=== PATIENT | female | born 1950 | race Caucasian/White ===

== ENCOUNTER → 2016-09-07 | Outpatient (CLI) | payer BC, MEDICARE ==
--- NOTE | 2016-09-11 11:31 | MM ---
Reason for exam: screening (asymptomatic). Last mammogram was performed 1 year and 3 months ago. History: Patient is postmenopausal. Benign stereotactic core biopsy of the right breast, December 27, 1998. Core biopsy of the right breast, 1997. Excisional biopsy of the right breast, 1995. Physical Findings: A clinical breast exam by your physician is recommended on an annual basis and results should be correlated with mammographic findings. MG Screening Mammo w CAD Bilateral CC and MLO view(s) were taken. Prior study comparison: May 31, 2015, bilateral MG screening mammo w CAD. March 22, 2014, bilateral MG screening mammo w CAD. No significant changes when compared with prior studies. ASSESSMENT: Negative, BI-RAD 1 RECOMMENDATION: Routine screening mammogram of both breasts in 1 year.
== END | disposition home or self-care (01) ==
LOC: RADMAMWWP 07:27
PROVIDERS: ATTEND Obstetrics & Gynecology
DX: Z12.31 Encounter for screening mammogram for malignant neoplasm of breast (principal)

== ENCOUNTER → 2016-09-24 | Outpatient (CLI) | payer BC, MEDICARE ==
--- NOTE | 2016-09-24 10:53 | BD ---
EXAMINATION TYPE: MG DEXA axial skeleton. DATE OF EXAM: 09/24/2016 COMPARISON: 2014 CLINICAL HISTORY: osteoporosis Height: 5'8 Weight: 177 FRAX RISK QUESTIONS: Alcohol (3 or more units per day): no Family History (Parent hip fracture): no Glucocorticoids (More than 3mos): no (Ex: prednisone, prednisolone, methylprednisolone, dexamethasone, and hydrocortisone). History of Fracture in Adulthood: yes Secondary Osteoporosis: 1. Type 1 Diabetes: no 2. Hyperthyroidism: no 3. Menopause before 45: no 4. Malnutrition: no 5. Chronic liver disease: no Rheumatoid Arthritis: no Current Tobacco Use: no RISK FACTORS HISTORY OF: Postmenopausal woman: MEDICATIONS: Additional Medications: Additional History: osteoporosis EXAM MEASUREMENTS: Bone mineral densitometry was performed using the [employer]. Bone mineral density as measured about the Lumbar spine is: ----- L1-L4(G/cm2): 0.704 T Score Values are as follows: ----- L2: -5.1 ----- L3: -4.2 ----- L4: -2.8 ----- L1-L4:-4.0 Bone mineral density has: Decreased -10.7% since study of: 03/22/2014 Bone mineral density about the R hip (g/cm2): 0.826 Bone mineral density about the L hip (g/cm2): 0.810 T Score values are as follows: -----R Neck: -1.5 -----L Neck: -1.6 -----R Total: -0.8 -----L Total: -1.1 Bone mineral density has: Decreased -0.7% since study of: 03/22/2014 IMPRESSION: Osteoporosis (T Score less than -2.5) as noted by T Score values at the:L1-L4 There is increased fracture risk and therapy is usually indicated based on age. Re-Screen 1-2 years. NOTE: T-SCORE=SD OF THE YOUNG ADULT MEAN.
== END | disposition home or self-care (01) ==
LOC: RADBDWWP 07:00
PROVIDERS: ATTEND Obstetrics & Gynecology
DX: M81.0 Age-related osteoporosis without current pathological fracture (principal)
CPT/HCPCS: 77080

== ENCOUNTER → 2017-09-24 | Outpatient (CLI) | payer BC, MEDICARE ==
--- NOTE | 2017-09-30 13:48 | MM ---
Reason for exam: screening (asymptomatic). Last mammogram was performed 1 year and 1 month ago. History: Patient is postmenopausal. Benign stereotactic core biopsy of the right breast, December 27, 1998. Core biopsy of the right breast, 1997. Excisional biopsy of the right breast, 1995. Physical Findings: A clinical breast exam by your physician is recommended on an annual basis and results should be correlated with mammographic findings. MG Screening Mammo w CAD Bilateral CC and MLO view(s) were taken. Prior study comparison: September 07, 2016, bilateral MG screening mammo w CAD. May 31, 2015, bilateral MG screening mammo w CAD. There are scattered fibroglandular densities. Previous mammotome biopsy in the right breast. No significant changes when compared with prior studies. ASSESSMENT: Benign, BI-RAD 2 RECOMMENDATION: Routine screening mammogram of both breasts in 1 year.
== END | disposition home or self-care (01) ==
LOC: RADMAMWWP 06:53
PROVIDERS: ATTEND Obstetrics & Gynecology
DX: Z12.31 Encounter for screening mammogram for malignant neoplasm of breast (principal)
CPT/HCPCS: 77067

== ENCOUNTER 2018-06-05 18:58 | Emergency (ER) | payer BC, MEDICARE ==
[2018-06-05 19:15] VITALS: TEMP 97.4
[2018-06-05] MEDS ORDERED: KETOROLAC 60 MG/2 ML VIAL IM STA (20:05)
--- NOTE | 2018-06-05 21:08 | CT ---
EXAMINATION TYPE: CT abdomen pelvis wo con DATE OF EXAM: 06/05/2018 COMPARISON: None HISTORY: Pt c/o pain in Lt groin area. Pt lifted heavy bag of stone today and felt pain upon twisting CT DLP: 531.7 mGycm Automated exposure control for dose reduction was used. TECHNIQUE: Helical acquisition of images was performed from the lung bases through the pelvis. FINDINGS: There is minimal subsegmental atelectasis or scarring at the left lung base. There is no pleural effu franny. Heart size is normal. There is no pericardial effusion. There are numerous rounded fluid densit ies in the liver consistent with multiple cysts that measure up to 1.4 cm. The bile ducts are not dil ated. There are clips from cholecystectomy. Stomach appears normal. Spleen appears normal. There is n o pancreatic mass. There is no adrenal mass. Kidneys have normal size and contour. There is no hydronephrosis. Ureters a re not dilated. There is no retroperitoneal adenopathy. Bladder distends smoothly. There is no free f luid in the pelvis. There is no inguinal hernia. I see no intestinal wall thickening. Appendix appear s normal. There is no mesenteric edema. There are scattered sigmoid diverticula without evidence of d iverticulitis. There is no free air. There is no ascites. Lumbar spine is intact. There is no tracy franny fracture. There is mild lumbar levoscoliosis. Bony pelvis is intact. IMPRESSION: THERE IS MILD SIGMOID DIVERTICULOSIS WITHOUT DIVERTICULITIS. NORMAL APPENDIX. MULTIPLE LOW-DENSITY LI KAREL LESIONS ARE PROBABLY CYSTS AND SHOULD BE CONFIRMED BY ULTRASOUND IF CLINICALLY INDICATED. I DO NO T SEE A CAUSE FOR LEFT GROIN PAIN.
--- NOTE | 2018-06-05 21:44 | ED ---
General Adult HPI - General Chief complaint: Extremity Injury, Lower Stated complaint: Groin pain Time Seen by Provider: 06/05/18 19:21 Source: patient, RN notes reviewed, old records reviewed Mode of arrival: ambulatory Limitations: no limitations - History of Present Illness Initial comments: 68-year-old female patient presents to ED with possible abdominal muscle strain. Patient reports that she was working in the yard when she picked up a bag of rocks and twisted. At that time patient reports that she felt a pull in her left oblique muscle. Patient denies any fall. Patient denies any other complaints. Patient denies any nausea vomiting diarrhea, chest pain. Systemic: Pt denies fatigue, myalgia, fever/chills, rash. Pt denies weakness, night sweats, weight loss. Neuro: Pt denies headache, visual disturbances, syncope or pre-syncope. HEENT: Pt denies ocular discharge or irritation, otalgia, rhinorrhea, pharyngitis or notable lymphadenopathy. Cardiopulmonary: Pt denies chest pain, SOB, heart palpitations, dyspnea on exertion. Abdominal/GI: Pt denies abdominal pain, n/v/d. : Pt denies dysuria, burning w/ urination, frequency/urgency. Denies new onset urinary or bowel incontinence. MSK: Pt denies myalgia, loss of strength or function in extremities. Neuro: Pt denies new onset weakness, paresthesias. - Related Data Home Medications Medication Instructions Recorded Confirmed Multivit-Min/Iron/Folic/Lutein 1 tab PO DAILY 11/07/15 06/05/18 [Centrum Silver Women Tablet] Allergies Allergy/AdvReac Type Severity Reaction Status Date / Time acetaminophen AdvReac Rash/Hives Verified 06/05/18 19:40 [From Darvocet-N 100] propoxyphene napsylate AdvReac Rash/Hives Verified 06/05/18 19:40 [From Darvocet-N 100] Review of Systems ROS Statement: Those systems with pertinent positive or pertinent negative responses have been documented in the HPI. ROS Other: All systems not noted in ROS Statement are negative. Past Medical History Past Medical History: No Reported History History of Any Multi-Drug Resistant Organisms: None Reported Past Surgical History: Cholecystectomy Past Psychological History: No Psychological Hx Reported Smoking Status: Never smoker Past Alcohol Use History: None Reported Past Drug Use History: None Reported General Exam - General Exam Comments Initial Comments: Constitutional: NAD, AOX3, Pt has pleasant affect. HEENT: NC/AT, trachea midline, neck supple, no lymphadenopathy. Posterior pharynx non erythematous, without exudates. External ears appear normal, without discharge. Mucous membranes moist. Eyes PERRLA, EOM intact. There is no scleral icterus. No pallor noted. Cardiopulmonary: RRR, no murmurs, rubs or gallops, no JVD noted. Lungs CTAB in anterior and posterior coleman. No peripheral edema. Abdominal exam: Abdomen soft and non-distended. Abdomen non-tender to palpation in all 4 quadrants. Bowel sounds active in LLQ. No hepatosplenomegaly. No ecchymosis Neuro: CN II-XII grossly intact. No nuchal rigidity. MSK: Left oblique mildly tender to palpation. No defect of abdominal wall. No hernia. No ecchymoses. No posterior calf tenderness bilaterally, homans sign negative bilaterally. Posterior tibialis and radial pulse +2 bilaterally. Sensation intact in upper and lower extremities. Full active ROM in upper and lower extremities, 5/5 stregnth. Limitations: no limitations Course Vital Signs 06/05/18 19:11 Temperature 97.4 F L Pulse Rate 63 Respiratory 18 Rate Blood Pressure 150/82 O2 Sat by Pulse 97 Oximetry Medical Decision Making - Medical Decision Making 68-year-old female patient presents to ED with possible abdominal muscle strain. Patient reports that she was working in the yard when she picked up a bag of rocks and twisted. At that time patient reports that she felt a pull in her left oblique muscle. Patient denies any fall. Patient denies any other complaints. Patient denies any nausea vomiting diarrhea, chest pain. Pt VSS, afebrile. Physical exam displayed: Left oblique mildly tender to palpation. No defect of abdominal wall. No hernia. No ecchymoses. CT abdomen and pelvis without contrast displayed diverticulosis without diverticulitis. Normal appendix. Liver cysts. These appears enough findings to patient. Patient pain resolved with administration of Toradol. Patient discharged. Patient will follow-up with primary care provider. Patient was additionally given orthopedic consult symptoms persist. Patient will use [id number] nonsteroidal anti- inflammatories or Tylenol as needed for pain. Case discussed with Dr. Schwarz. Disposition Clinical Impression: Abdominal muscle strain Disposition: HOME SELF-CARE Condition: Stable Instructions (If sedation given, give patient instructions): Muscle Strain (ED) Additional Instructions: Patient to adhere to previously discussed treatment plan and will take medication(s) as directed. Patient to follow up with PCP in 1-2 days. Patient to return to ED if symptoms do not improve. Follow-up with primary care provider in 1-2 days. Use Tylenol or Motrin as needed for pain. Follow up with orthopedic surgeon if symptoms persist. Return to ER if condition worsens. Is patient prescribed a controlled substance at d/c from ED?: No Referrals: Edith Stoddard MD [Primary Care Provider] - 1-2 days
[2018-06-05 22:06] VITALS: BP 120/92; PULSE 66; RESP 16
== END 2018-06-05 22:06 | disposition home or self-care (01) ==
LOC: EC 18:58
DX: S39.011A Strain of muscle, fascia and tendon of abdomen, initial encounter (principal); Z90.49 Acquired absence of other specified parts of digestive tract; Z88.6 Allergy status to analgesic agent; Z88.5 Allergy status to narcotic agent; X50.1XXA Overexertion from prolonged static or awkward postures, initial encounter; Y92.096 Garden or yard of other non-institutional residence as the place of occurrence of the external cause; Y93.89 Activity, other specified
CPT/HCPCS: 99284; 96372; 74176; J1885

== ENCOUNTER → 2018-10-10 | Outpatient (CLI) | payer BC, MEDICARE ==
--- NOTE | 2018-10-14 14:49 | MM ---
Reason for exam: screening (asymptomatic). Last mammogram was performed 1 year and 1 month ago. History: Patient is postmenopausal. Benign stereotactic core biopsy of the right breast, December 27, 1998. Core biopsy of the right breast, 1997. Excisional biopsy of the right breast, 1995. Physical Findings: A clinical breast exam by your physician is recommended on an annual basis and results should be correlated with mammographic findings. MG Screening Mammo w CAD Bilateral CC and MLO view(s) were taken. Prior study comparison: September 24, 2017, bilateral MG screening mammo w CAD. September 07, 2016, bilateral MG screening mammo w CAD. There are scattered fibroglandular densities. No suspicious abnormality. Right biopsy marker. No significant changes when compared with prior studies. ASSESSMENT: Negative, BI-RAD 1 RECOMMENDATION: Routine screening mammogram of both breasts in 1 year.
== END | disposition home or self-care (01) ==
LOC: RADMAMWWP 06:54
PROVIDERS: ATTEND Obstetrics & Gynecology
DX: Z12.31 Encounter for screening mammogram for malignant neoplasm of breast (principal)
CPT/HCPCS: 77067

== ENCOUNTER → 2020-02-08 | Outpatient (CLI) | payer MEDICARE ==
--- NOTE | 2020-02-08 09:02 | BD ---
EXAMINATION TYPE: Axial Bone Density DATE OF EXAM: 02/08/2020 COMPARISON: DEXA September 24, 2016 CLINICAL HISTORY: Bone disorder. Postmenopausal female. Height: 5 FT 7 1/2 IN Weight: 187 FRAX RISK QUESTIONS: Alcohol (3 or more units per day): NO Family History (Parent hip fracture): NO Glucocorticoids (More than 3mos): NO (Ex: prednisone, prednisolone, methylprednisolone, dexamethasone, and hydrocortisone). History of Fracture in Adulthood: YES Secondary Osteoporosis: 1. Type 1 Diabetes: NO 2. Hyperthyroidism: NO 3. Menopause before 45: NO 4. Malnutrition: NO 5. Chronic liver disease: NO Rheumatoid Arthritis: NO Current Tobacco Use: NO RISK FACTORS HISTORY OF: Family History of Osteoporosis: NO Active: YES Diet low in dairy products/other sources of calcium: NO Postmenopausal woman: AGE 51 Take estrogen and/or progesterone medications: NONE Lost more than 2 inches in height since high school: YES MEDICATIONS: Additional Medications: NONE Additional History: EXAM MEASUREMENTS: Bone mineral densitometry was performed using the [employer]. Bone mineral density as measured about the Lumbar spine is: ----- L1-L4(G/cm2): 0.761 T Score Values are as follows: ----- L2: -4.6 ----- L3: -3.7 ----- L4: -2.3 ----- L1-L4: -3.5 Bone mineral density has: INCREASED 8.6 % since study of: 2016 Bone mineral density about the R hip (g/cm2): 0.828 Bone mineral density about the L hip (g/cm2): 0.735 T Score values are as follows: -----R Neck: -1.5 -----L Neck: -2.2 -----R Total: -1.1 -----L Total: -1.5 Bone mineral density has: DECREASED -4.7 % since study of: 2016 IMPRESSION: Osteoporosis (T Score less than -2.5) persists. There remains increased fracture risk and therapy is usually indicated based on age. Re-Screen 1-2 years. NOTE: T-SCORE=SD OF THE YOUNG ADULT MEAN.
--- NOTE | 2020-02-08 13:25 | MM ---
Reason for exam: screening (asymptomatic). Last mammogram was performed 1 year and 4 months ago. History: Patient is postmenopausal. Benign stereotactic core biopsy of the right breast, December 27, 1998. Core biopsy of the right breast, 1997. Excisional biopsy of the right breast, 1995. Physical Findings: A clinical breast exam by your physician is recommended on an annual basis and results should be correlated with mammographic findings. MG Screening Mammo w CAD Bilateral CC and MLO view(s) were taken. Prior study comparison: October 10, 2018, bilateral MG screening mammo w CAD. September 24, 2017, bilateral MG screening mammo w CAD. There are scattered fibroglandular densities. Previous mammotome biopsy in the right breast. There is no discrete abnormality. ASSESSMENT: Benign, BI-RAD 2 RECOMMENDATION: Routine screening mammogram of both breasts in 1 year.
== END | disposition home or self-care (01) ==
LOC: RADMAMWWP 07:43
PROVIDERS: ATTEND Obstetrics & Gynecology
DX: Z12.31 Encounter for screening mammogram for malignant neoplasm of breast (principal); M81.0 Age-related osteoporosis without current pathological fracture
CPT/HCPCS: 77067; 77080

== ENCOUNTER → 2021-06-01 | Outpatient (CLI) | payer MEDICARE ==
--- NOTE | 2021-06-02 14:25 | MM ---
Reason for exam: screening (asymptomatic). Last mammogram was performed 1 year and 4 months ago. History: Patient is postmenopausal. Benign stereotactic core biopsy of the right breast, December 27, 1998. Core biopsy of the right breast, 1997. Excisional biopsy of the right breast, 1995. Physical Findings: A clinical breast exam by your physician is recommended on an annual basis and results should be correlated with mammographic findings. MG Screening Mammo w CAD Bilateral CC and MLO view(s) were taken. Prior study comparison: February 08, 2020, bilateral MG screening mammo w CAD. October 10, 2018, bilateral MG screening mammo w CAD. The breast tissue is almost entirely fat. No significant changes when compared with prior studies. ASSESSMENT: Benign, BI-RAD 2 RECOMMENDATION: Routine screening mammogram of both breasts in 1 year.
== END | disposition home or self-care (01) ==
LOC: RADMAMWWP 10:26
PROVIDERS: ATTEND Obstetrics & Gynecology
DX: Z12.31 Encounter for screening mammogram for malignant neoplasm of breast (principal); Z78.0 Asymptomatic menopausal state
CPT/HCPCS: 77067

== ENCOUNTER → 2021-06-15 | Outpatient (CLI) | payer MEDICARE ==
[2021-06-15 15:14] LABS: Chol/HDL Ratio 3.83 Ratio; VLDL Calculation 16.12 mg/dL (5.00-40.00)
== END | disposition home or self-care (01) ==
LOC: LABWHC1 07:35
PROVIDERS: ATTEND Internal Medicine Cardiovascular Disease
DX: E78.2 Mixed hyperlipidemia (principal); R94.31 Abnormal electrocardiogram [ECG] [EKG]
CPT/HCPCS: 36415; 80061

== ENCOUNTER → 2022-08-08 | Outpatient (CLI) | payer MEDICARE ==
[2022-08-08 11:03] LABS: ALT 21 U/L (8-44); AST 18 U/L (13-35); Albumin 4.3 d/dL (3.8-4.9); Albumin/Globulin Ratio 1.65 Ratio (1.60-3.17); Alkaline Phosphatase 90 U/L (41-126); Bilirubin, Conjugated <0.20 mg/dL (0.20-0.40); Bilirubin,Unconjugated >0.10 mg/dL (0.20-1.00); Chol/HDL Ratio 3.21 Ratio; Globulin 2.6 d/dL (1.6-3.3); LDL Cholesterol,Calculated 138.3 mg/dL (0.0-131.0); Total Bilirubin 0.3 mg/dL (0.3-1.2); Total Protein 6.9 d/dL (6.2-8.2); VLDL Calculation 16.58 mg/dL (5.00-40.00)
== END | disposition home or self-care (01) ==
LOC: LABWHC1 07:01
PROVIDERS: ATTEND Internal Medicine Cardiovascular Disease
DX: E78.2 Mixed hyperlipidemia (principal)
CPT/HCPCS: 36415; 80061; 80076

== ENCOUNTER → 2022-08-24 | Outpatient (CLI) | payer MEDICARE ==
--- NOTE | 2022-08-24 11:25 | BD ---
EXAMINATION TYPE: Axial Bone Density DATE OF EXAM: 08/24/2022 CLINICAL HISTORY: 72 years old Female. ICD-10 CODE: M85.88 OSTEOPENIA Height: 66.2 Weight: 180 FRAX RISK QUESTIONS: Family History (Parent hip fracture): no fx History of Fracture in Adulthood: yes RISK FACTORS HISTORY OF: hx of rt ankle fx as an adult Family History of Osteoporosis: yes, her mother no fx Postmenopausal woman: yes, at 51 Lost more than 2 inches in height since high school: yes Hyperparathyroidism: no Adrenal Insufficiency: no MEDICATIONS: Additional Medications: osteo bi-flex, calcium and vit d Additional History: nothing to note here EXAM MEASUREMENTS: Bone mineral densitometry was performed using the [employer] System. Bone mineral density as measured about the Lumbar spine is: ----- L1-L4(G/cm2): 0.664 T Score Values are as follows: ----- L1: -4.4 ----- L2: -4.7 ----- L3: -4.7 ----- L4: -3.5 ----- L1-L4: -4.3 Z Score Values are as follows: ----- L1: -3.2 ----- L2: -3.5 ----- L3: -3.5 ----- L4: -2.3 ----- L1-L4: -3.1 Bone mineral density has: Decreased -12.7% since study of: 02.08.2020 Bone mineral density about the R hip (g/cm2): 0.821 Bone mineral density about the L hip (g/cm2): 0.858 T Score values are as follows: -----R Neck: -1.5 -----L Neck: -1.7 -----R Total: -1.5 -----L Total: -1.2 Z Score values are as follows: -----R Neck: -0.1 -----L Neck: -0.2 -----R Total: -0.3 -----L Total: 0.0 Bone mineral density has: Decreased -0.8% since study of: 02.08.2020 FRAX%s: The graph provided illustrates a 17.0% chance for a major osteoporotic fx and a 2.9% chance f or the hips probability for fx in 10 years time. IMPRESSION: Osteoporosis (T Score less than -2.5). There is increased fracture risk and therapy is usually indicated based on age. Re-Screen 1-2 years. NOTE: T-SCORE=SD OF THE YOUNG ADULT MEAN.
--- NOTE | 2022-08-27 09:02 | MM ---
Reason for Exam: Screening (asymptomatic). Last mammogram was performed 1 year(s) and 3 month(s) ago. Patient History: Menarche at age 12. First Full-Term at age 19. Postmenopausal. 1997, Core Biopsy on the Right side. 1995, Excisional Biopsy on the Right side. 12/27/1998, Benign Stereotactic Core Biopsy on the right side. Risk Values: Lola 5 year model risk: 1.9%. NCI Lifetime model risk: 5.0%. Prior Study Comparison: 10/10/2018 Bilateral Screening Mammogram, [facility]. 02/08/2020 Bilateral Screening Mammogram, [facility]. 06/01/2021 Bilateral Screening Mammogram, [facility]. Tissue Density: The breast tissue is almost entirely fat. Findings: Analyzed By CAD. There is no suspicious group of microcalcifications or new suspicious mass in either breast. Overall Assessment: Negative, BI-RAD 1 Management: Screening Mammogram of both breasts in [address] [facility] will attempt to contact patient to return for supplemental views and ultrasound if indicated. Patient should continue monthly self-breast exams. A clinical breast exam by your physician is recommended on an annual basis. This exam should not preclude additional follow-up of suspicious palpable abnormalities. Note on Lola scores and lifetime risk: 1. A Lola score greater than 3% is considered moderate risk. If this is the case, consider specialist referral to assess eligibility for a risk reducing agent. 2. If overall lifetime risk for the development of breast cancer is 20% or higher, the patient may qualify for future screening with alternating mammogram and breast MRI. Electronically signed and approved by: Tree Fleming DO
== END | disposition home or self-care (01) ==
LOC: RADMAMWWP 08:10
PROVIDERS: ATTEND Obstetrics & Gynecology
DX: Z12.31 Encounter for screening mammogram for malignant neoplasm of breast (principal); M85.89 Other specified disorders of bone density and structure, multiple sites; Z78.0 Asymptomatic menopausal state
CPT/HCPCS: 77063; 77067; 77080

== ENCOUNTER 2022-11-15 08:32 | Day surgery (SDC) | payer MEDICARE ==
[~2022-11-15 08:32] MED LIST: LACTATED RINGERS 1,000 ML IV SCH; LIDOCAINE 1% (10MG/ML) FOR IV START INTRADERMA PRN; ONDANSETRON 4 MG/2 ML VIAL IVP PRN
[2022-11-15 09:18] VITALS: TEMP 97
[2022-11-15] MEDS ORDERED: LIDOCAINE 1% INJ 10MG/ML (20 ML MDV) ONE (09:42)
[2022-11-15] MEDS ORDERED: PROPOFOL 10 MG/ML 20 ML VIAL IV ONE (09:42)
--- NOTE | 2022-11-15 09:50 | P.GSHP ---
History of Present Illness H&P Date: 11/15/22 Chief Complaint: Diarrhea, change in bowel habits This is a 72-year-old female been safe for colonoscopy. Patient complaints of diarrhea and change in bowel habits. Past Medical History Past Medical History: No Reported History, GERD/Reflux, Hyperlipidemia Additional Past Medical History / Comment(s): Recently diarrhea, murmur, slight elevated cholesterol. History of Any Multi-Drug Resistant Organisms: None Reported Past Surgical History: Cholecystectomy, Orthopedic Surgery Additional Past Surgical History / Comment(s): Hemmorhoidectomy, D&C, R foot surgery for plantar fascitis. Past Anesthesia/Blood Transfusion Reactions: No Reported Reaction Smoking Status: Former smoker - Past Family History Father Family Medical History: Cancer, GERD/Reflux, GI Bleed Additional Family Medical History / Comment(s): Stomach ulcers/perforated, lung cancer Mother Family Medical History: Vascular Disorder Additional Family Medical History / Comment(s): from aortic aneurysm Medications and Allergies Home Medications Medication Instructions Recorded Confirmed Type Multivit-Min/Iron/Folic/Lutein 1 tab PO QAM 11/07/15 11/15/22 History [Centrum Silver Women Tablet] Ascorbic Acid [Vitamin C] 1,000 mg PO QAM 11/13/22 11/15/22 History Aspirin 325 mg PO DAILY PRN 11/13/22 11/15/22 History Allergies Allergy/AdvReac Type Severity Reaction Status Date / Time acetaminophen Allergy Rash/Hives Verified 11/15/22 09:12 [From Darvocet-N 100] propoxyphene napsylate Allergy Rash/Hives Verified 11/15/22 09:12 [From Darvocet-N 100] Surgical - Exam Vital Signs Temp Pulse Resp BP Pulse Ox 97 F L 71 16 168/82 95 11/15/22 09:06 11/15/22 09:06 11/15/22 09:06 11/15/22 09:06 11/15/22 09:06 - General well developed, well nourished, no distress - Eyes PERRL - ENT normal pinna - Respiratory normal expansion - Cardiovascular Rhythm: regular - Abdomen Abdomen: soft, non tender Assessment and Plan Assessment: History of diarrhea and change about. We'll perform colonoscopy.
--- NOTE | 2022-11-15 10:26 | P.OP ---
Date of Procedure: 11/15/22 Preoperative Diagnosis: Diarrhea Change in bowel habits Postoperative Diagnosis: Diverticulosis Procedure(s) Performed: colonoscopy Anesthesia: MAC Surgeon: Nacho Lee Pathology: none sent Condition: stable Disposition: PACU Description of Procedure: The patient's placed on the endoscopy table in the lateral position. She received IV sedation. Digital rectal exam was performed. This revealed no abnormalities. Flexible scope was then placed patient anus passed throughout the entire colon. The ileocecal valve was visualized. The cecum, ascending and transverse colon appeared normal. The descending and sigmoid colon had diverticular changes. There was no evidence of any active diverticulitis. The scope was brought back the rectum and this appeared normal. The scope was withdrawn for patient.
[2022-11-15 10:42] VITALS: BP 150/84; PULSE 58; RESP 18
== END 2022-11-15 10:50 | disposition home or self-care (01) ==
LOC: ORWHC2ENDO 08:32
PROVIDERS: ATTEND Surgery
DX: K57.30 Diverticulosis of large intestine without perforation or abscess without bleeding (principal); I10 Essential (primary) hypertension; E78.5 Hyperlipidemia, unspecified; K21.9 Gastro-esophageal reflux disease without esophagitis; Z90.49 Acquired absence of other specified parts of digestive tract; Z98.890 Other specified postprocedural states; Z87.891 Personal history of nicotine dependence; Z82.49 Family history of ischemic heart disease and other diseases of the circulatory system; Z80.1 Family history of malignant neoplasm of trachea, bronchus and lung; Z83.79 Family history of other diseases of the digestive system; Z79.899 Other long term (current) drug therapy
CPT/HCPCS: 45378; J2001; J2704

== ENCOUNTER → 2023-12-03 | Outpatient (CLI) | payer MEDICARE ==
--- NOTE | 2023-12-04 19:11 | MM ---
Reason for Exam: Screening (asymptomatic). Last mammogram was performed 1 year(s) and 3 month(s) ago. Patient History: Menarche at age 12. First Full-Term at age 19. Postmenopausal. 1997, Core Biopsy on the Right side. 1995, Excisional Biopsy on the Right side. 12/27/1998, Benign Stereotactic Core Biopsy on the right side. Risk Values: Lola 5 year model risk: 1.9%. NCI Lifetime model risk: 4.7%. Prior Study Comparison: 02/08/2020 Bilateral Screening Mammogram, [facility]. 06/01/2021 Bilateral Screening Mammogram, [facility]. 08/24/2022 Bilateral MG 3D screening mammo w/cad, [facility]. Tissue Density: There are scattered areas of fibroglandular density. Findings: Analyzed By CAD. Microclip right breast from prior biopsy. There is no suspicious group of microcalcifications or new suspicious mass in either breast. Overall Assessment: Negative, BI-RAD 1 Management: Screening Mammogram of both breasts in 1 year. . Patient should continue monthly self-breast exams. A clinical breast exam by your physician is recommended on an annual basis. This exam should not preclude additional follow-up of suspicious palpable abnormalities. Note on Lola scores and lifetime risk: 1. A Lola score greater than 3% is considered moderate risk. If this is the case, consider specialist referral to assess eligibility for a risk reducing agent. 2. If overall lifetime risk for the development of breast cancer is 20% or higher, the patient may qualify for future screening with alternating mammogram and breast MRI. [facility], , 12/04/2023 7:08 PM. Electronically signed and approved by: Tucker Conrad M.D. Radiologist
== END | disposition home or self-care (01) ==
LOC: RADMAMWWP 07:24
PROVIDERS: ATTEND Internal Medicine
CPT/HCPCS: 77063; 77067

== ENCOUNTER → 2024-08-04 | Outpatient (CLI) | payer MEDICARE ==
--- NOTE | 2024-08-04 08:33 | US ---
EXAMINATION TYPE: US carotid duplex BILAT DATE OF EXAM: 08/04/2024 COMPARISON: NONE CLINICAL INDICATION: Female, 74 years old with history of R09.89 ARTERIAL BRUIT; Former smoker x 25 y ears, patient denies any other signs, symptoms, or relevant history Additional History: .... TECHNIQUE: Grayscale, color Doppler and spectral Doppler evaluation of the bilateral carotid systems and vertebral arteries. Indirect Doppler criteria was utilized. 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 Color Doppler imaging shows patency with blood flow throughout the carotid artery. Spectral waveforms are within normal limits. IMPRESSION: 1. Mild intimal thickening. No significant flow-limiting stenosis based on velocities. Criteria for Assigning % of Stenosis / Diameter reduction (Estimation based on the indirect measurements of the internal carotid artery velocities (ICA PSV). 1. Normal (no stenosis)=ICA PSV < 180 cm/s: ratio < 2.0: ICA EDV<40 cm/s. 2. Less than 50% stenosis=ICA PSV < 180 cm/s: ratio < 2.0: ICA EDV<40 cm/s. 3. 50 to 69% stenosis=ICA PSV of 180 to 230 cm/s: ration 2.0 ? 4.0: ICA EDV 40-100 cm/s. PSV 125-180 cm/sec and ICA/CCA PSV Ratio ? 2.0 is also consistent with 50-69% stenosis 4. Greater than 70% stenosis to near occlusion= ICA PSV > 230 cm/s: ratio > 4.0: ICA EDV > 100 cm/s. 5. Near occlusion= ICA PSV velocities may be low or undetectable: variable ratio and ICA EDV. 6. Total occlusion=unable to detect flow. [facility], , 08/04/2024 8:30 AM
== END | disposition home or self-care (01) ==
LOC: RADUSWWP 07:48
PROVIDERS: ATTEND Family Medicine
DX: I65.23 Occlusion and stenosis of bilateral carotid arteries (principal); R09.89 Other specified symptoms and signs involving the circulatory and respiratory systems
CPT/HCPCS: 93880

== ENCOUNTER → 2024-08-24 | Outpatient (CLI) | payer MEDICARE ==
[2024-08-24 11:00] LABS: ALT 23 U/L (8-44); AST 21 U/L (13-35); Albumin 4.3 g/dL (3.8-4.9); Albumin/Globulin Ratio 1.65 Ratio (1.60-3.17); Alkaline Phosphatase 94 U/L (41-126); Anion Gap 12.90 mmol/L (4.00-12.00); BUN/Creat Ratio 22.78 Ratio (12.00-20.00); Blood Urea Nitrogen 20.5 mg/dL (9.0-27.0); Calcium 9.5 mg/dL (8.7-10.3); Carbon Dioxide 25.1 mmol/L (21.6-31.8); Chloride 104 mmol/L (96-109); Cholesterol 246.00 mg/dL (0.00-200.00); Globulin 2.6 g/dL (1.6-3.3); Glucose 83 mg/dL (70-110); HDL Cholesterol 78.60 mg/dL (40.00-60.00); LDL Cholesterol,Calculated 151.4 mg/dL (0.0-131.0); Potassium 4.5 mmol/L (3.5-5.5); Sodium 142 mmol/L (135-145); Total Protein 6.9 g/dL (6.2-8.2); Triglycerides 80.20 mg/dL (0.00-149.00); VLDL Calculation 16.04 mg/dL (5.00-40.00); Vitamin B12 550.0 pg/mL (200.0-944.0)
== END | disposition home or self-care (01) ==
LOC: LABWHC1 07:09
PROVIDERS: ATTEND Family Medicine
DX: E78.5 Hyperlipidemia, unspecified (principal); E55.9 Vitamin D deficiency, unspecified; D51.9 Vitamin B12 deficiency anemia, unspecified; M85.9 Disorder of bone density and structure, unspecified; R73.9 Hyperglycemia, unspecified; R09.89 Other specified symptoms and signs involving the circulatory and respiratory systems
CPT/HCPCS: 36415; 80053; 80061; 82306; 82607; 83036; 83090; 84443